=== PATIENT | male | born 1975 | race Two or more races ===

== ENCOUNTER 2020-04-27 22:23 | Emergency (ER) | payer OTHER ==
[~2020-04-27] VITALS: Ht 170.2 cm; Wt 108.9 kg
[2020-04-27] MEDS ORDERED: FOLIC ACID 1 MG, MULTIPLE VITAMIN 10 ML, MAGNESIUM SULF SDV 50% 8 MEQ, THIAMINE INJ 100... INJ ONE ×5 (23:30)
[2020-04-28 03:00] VITALS: BP 116/81
== END 2020-04-28 03:29 | disposition home or self-care (01) ==
LOC: EDBD 22:23 → ER 22:29
DX: S00.83XA Contusion of other part of head, initial encounter (principal); S09.90XA Unspecified injury of head, initial encounter; F10.920 Alcohol use, unspecified with intoxication, uncomplicated; W18.39XA Other fall on same level, initial encounter; Y93.89 Activity, other specified; Y92.89 Other specified places as the place of occurrence of the external cause; Y99.8 Other external cause status
CPT/HCPCS: 36415; 70450; 70486; 72125; 80320; 96365; 96366; 99285; J3411; J3475; J7030